=== PATIENT | male | born 1990 | race Caucasian/White ===

== ENCOUNTER 2022-01-12 12:47 | Emergency (ER) | payer MEDICAID ==
[~2022-01-12] VITALS: Ht 180.3 cm; Wt 93.2 kg
[2022-01-12] MEDS ORDERED: SODIUM CHLORIDE 0.9% 250 ML IRRIG SOLUTION BOTTLE IRRIG ONE (14:15)
[2022-01-12] MEDS ORDERED: PERTUSS(ACELL),DIPH,TET VAC/PF 0.5 ML SYRINGE IM. ONE (14:15)
[2022-01-12] MEDS ORDERED: IBUP-2070 PO (16:15)
[2022-01-12 16:25] VITALS: BP 127/80
== END 2022-01-12 16:27 | disposition home or self-care (01) ==
LOC: EMS 12:47
DX: S62.307A Unspecified fracture of fifth metacarpal bone, left hand, initial encounter for closed fracture (principal); S01.412A Laceration without foreign body of left cheek and temporomandibular area, initial encounter; F10.20 Alcohol dependence, uncomplicated; F12.90 Cannabis use, unspecified, uncomplicated; Y04.2XXA Assault by strike against or bumped into by another person, initial encounter; Y93.89 Activity, other specified; Y92.89 Other specified places as the place of occurrence of the external cause; Y99.8 Other external cause status; Z90.13 Acquired absence of bilateral breasts and nipples
CPT/HCPCS: 12001; 90471; 90715; 99283